=== PATIENT | male | born 1965 | race Caucasian/White ===

== ENCOUNTER → 2025-01-13 08:42 | Outpatient (CLI) | payer OTHER, SELFPAY ==
[2025-01-13 10:00] LABS: Add Manual Diff / Slide Review NO; Basophils Absolute Auto 100 /uL (0-100); Basophils Percent Auto 1.3 % (0-2); Eosinophils Absolute Auto 400 /uL (0-450); Eosinophils Percent Auto 3.8 % (2-4); Hematocrit 43.8 % (41-53); Hemoglobin 15.1 g/dL (13.5-17.5); Lymphocytes Absolute Auto 2800 /uL (1100-4500); Lymphocytes Percent Auto 28.8 % (25-40); Mean Corpuscular HGB Conc 34.3 % (30-36); Mean Corpuscular Hemoglobin 31.9 PG (26-34); Mean Corpuscular Volume 92.9 fL (80-100); Monocytes Absolute Auto 500 /uL (0-900); Monocytes Percent Auto 5.5 % (3-14); Neutrophils Absolute Auto 5900 /uL (1500-7000); Neutrophils Percent Auto 60.6 % (50-75); Platelet Count 323 X10^3/uL (150-400); Red Blood Cell Count 4.72 X10^6/uL (4.5-5.9); Red Cell Distribution Width 13.3 % (11.6-14.8); White Blood Cell Count 9.7 X10^3/uL (4.5-11.0)
[2025-01-13 10:23] LABS: Alanine Aminotransferase 35 IU/L (<50); Albumin 4.4 g/dL (3.5-5.0); Albumin Globulin Ratio 1.8 (1.0-2.8); Alkaline Phosphatase 70 U/L (38-126); Aspartate Aminotransferase 35 IU/L (17-59); BUN Creatinine Ratio 19.2 (6-22); Bilirubin Total 0.6 mg/dL (0.2-1.3); Blood Urea Nitrogen 20 mg/dL (9-20); Calcium 9.8 mg/dL (8.4-10.2); Carbon Dioxide 25 mmol/L (22-32); Chloride 104 mmol/L (98-107); Cholesterol 211 mg/dL (140-199); Estimated Glomerular Filt Rate > 60 mL/min (>60); Globulin 2.5 g/dL (1.7-4.1); Glucose 99 mg/dL (70-99); HDL Cholesterol 45 mg/dL (40-60); HEMOLYSIS < 15 (0-50); LDL Cholesterol Calculated 135 mg/dL (<100); Sodium 137 mmol/L (137-145); Total Protein 6.9 g/dL (6.3-8.2); Triglycerides 153 mg/dL (35-150)
== END ==
PROVIDERS: PCP Family Medicine; Referring Provider Family Medicine; Visit Provider Family Medicine
DX: R03.0 Elevated blood-pressure reading, without diagnosis of hypertension (principal); Z13.6 Encounter for screening for cardiovascular disorders
CPT/HCPCS: 36415; 80053; 80061; 85025

== ENCOUNTER 2025-03-18 11:21 | Day surgery (SDC) | payer OTHER, SELFPAY ==
--- NOTE | 2025-03-18 | PATH_ITS ---
[facility] Accession Number: [id number] No. of containers..02 Tissue . 01 Material submitted: . PART A: colon - COLON, DESCENDING POLYP #1 PART B: colon - COLON, SIGMOID POLYP AT 25 . 01 Diagnosis: A. DESCENDING COLON POLYP: Hyperplastic polyp. . B. 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 Mucin pools present at deep polypectomy stalk margin. Intact DNA mismatch repair proteins by immunoohistochemistry; please see below. . . B3. IMMUNOHISTOCHEMISTRY TESTING FOR MISMATCH REPAIR PROTEINS: . MLH1: Intact nuclear expression. MSH2: Intact nuclear expression. MSH6: Intact nuclear expression. PMS2: Intact nuclear expression. Background nonneoplastic tissue/internal control with intact nuclear expression. . INTERPRETATION: No loss of nuclear expression of MMR proteins: low probability of microsatellite instability-high (MSI-H)* . * There are exceptions to the above IHC interpretations. These results should not be considered in isolation, and clinical correlation with genetic counseling is recommended to assess the need for germline testing. . * This test was developed and the performance characteristics were validated by [employer]. It has not been cleared or approved by the U.S. Food and Drug Administration. MRV 03/29/2025 1448 Local . 01 Comment: As part of routine senior quality engineer, Dr. Huynh has reviewed this case and agrees with the diagnosis of invasive adenocarcinoma. The finding of invasive adenocarcinoma was report to Dr. Steward by Dr. Romero on 03/26/2025 at 11:35 a.m. . . 01 Electronically signed: . Zion Romero MD, PhD, Pathologist NPI- [id number] . 01 Gross description: . Part A: COLON, DESCENDING POLYP #1: Received in formalin is 1 fragment(s) of scott, soft tissue measuring 0.7 x 0.5 x 0.4 cm submitted entirely in 1 cassette(s) Part B: COLON, SIGMOID POLYP AT 25: Received in formalin are 2 fragments of scott soft tissue measuring 2.5 x 2.0 x 1.6 cm in aggregate. Specimen is sectioned and submitted in its entirety in 4 cassettes. /RAMILA 03/24/2025 0003 Local . 01 Pathologist provided ICD-10: C18.7 . 01 CPT . 849068, 733232, E26753, V26763 Specimen Comment: A courtesy copy of this report has been sent to [phone] Performed at: [address] [id number] MD Russell Huynh MD Phone: [phone]
--- NOTE | 2025-03-18 | DI.RAD.S_ITS ---
PROCEDURE: XR KUB INDICATIONS: rule out colon perforation following colonoscopy + polypecto TECHNIQUE: One view of the abdomen acquired. COMPARISON: None. FINDINGS: Stool gas pattern: Normal-no evidence of ileus or obstruction. No free intraperitoneal or extraperitoneal air. No gross evidence of ascites Soft tissues: No abnormal calcifications. No soft tissue masses. Organs: No gross evidence for organomegaly. IMPRESSION: Normal abdomen Dictated by: Chriss Drummond M.D. on 03/19/2025 at 9:42 Approved by: Chriss Drummond M.D. on 03/19/2025 at 9:42
[2025-03-18] MEDS: LACTATED RINGERS 1,000 ML 100 ML IV (11:37)
[2025-03-18 11:41] VITALS: BP 134/87; PULSE 87; RESP 16; TEMP 36.7; O2SAT 96
--- NOTE | 2025-03-18 12:41 | P.HP_ITS ---
History of Present Illness History of Present Illness Date Patient Seen: 03/18/25 Time Patient Seen: 12:42 Chief complaint: Screening Colonoscopy Narrative: Melvin is a 59-year-old man here for a screening colonoscopy. He has never had one before. No family history of colon cancer. [facility] Medical History (Updated 03/18/25 @ 12:42 by J Luis Steward MD) Wears glasses Migraines (~1999) Headache (~1999) Shoulder pain (~2021) Fractures (~2002) Foot pain (~2014) Mumps (~1971) Chicken pox (~1971) Family History (Updated 12/10/24 @ 19:39 by Lia Mosher) Father Cancer Mother Cancer Sister Cancer Social History Smoking Status: Never smoker alcohol intake: current Meds Home Medications and Allergies Home Medications ?Medication ?Instructions ?Recorded ?Confirmed ?Type clotrimazole 1 % topical cream 1 applic topical TID #3 0 grams 11/23/24 01/05/25 Rx triamcinolone acetonide 0.1 % 1 applic topical TID #30 grams 11/23/24 01/05/25 Rx topical cream Allergies Allergy/AdvReac Type Severity Reaction Status Date / Time No Known Drug Allergies Allergy Verified 03/18/25 11:50 Exam Vital Signs (past 8 hours): - 03/18/25 11:41 Temperature 98.1 F Pulse Rate 87 Respiratory Rate 16 Blood Pressure 134/87 Pulse Oximetry 96 Oxygen Delivery Method Room Air Oxygen Delivery Method Room Air Const General: healthy appearing Assessment & Plan Assessment and plan (1) Colon cancer screening: Status: Acute Plan Colonoscopy Time-Based Coding :: [TOTAL MINUTES] spent with patient and on the chart (including review of chart, obtaining history, exam, reviewing outside data, placing orders, documenting exam and treatment plan, and counseling patient) on [DATE]. PROFEE Civil Engineering Technician Document charge(s): No
[2025-03-18 13:55] VITALS: BP 130/70; PULSE 64; RESP 15; TEMP 36.2; O2SAT 98
--- NOTE | 2025-03-18 13:57 | PM.OP.COLON ---
Operative Date/Time/Diagnoses Date of procedure: 03/18/25 Time of procedure: 13:57 Pre-op diagnosis: Colon cancer screening Post-op diagnosis: same Procedure & Clinicians Study performed: Colonoscopy Same procedure(s) as scheduled: Yes Surgeon: J Luis Steward Anesthesia Type: MAC +/- Procedure Notes Procedure in detail: Surgeon: J Luis Steward MD Anesthesia: Gali Ugalde CRNA Procedure: The patient was brought to the endoscopy suite, placed in left lateral decubitus position. The patient was connected to monitoring devices. A time-out was performed. Sedation was administered. Once the patient was adequately sedated, a digital rectal exam was performed and was normal. The scope was then inserted and advanced to the cecum where the appendiceal orifice was identified and photographed. The scope was then slowly withdrawn over greater than 6 minutes. The mucosa was thoroughly inspected. There was 1 cm polyp in the descending colon removed with a hot snare. There was large polyp on a stalk in the proximal sigmoid colon at roughly 25 cm. The head of the this polyp was likely greater than 3 cm in diameter. This was removed with a hot snare and retrieved with the net. We reinspected the area to assure there was no evidence full-thickness colon injury and none was seen. The scope was retroflexed in the rectum. No other abnormalities were found. The scope was straightened and removed. The patient was awakened and brought to recovery. Scope withdrawal time: 43 minutes Sedation time: 48 minutes EBL: 5 mL Findings: 1 cm polyp in the descending colon and a large polyp versus mass on a stalk at 25 cm in the sigmoid colon Post-procedure Disposition: PACU
[2025-03-18 14:00] VITALS: BP 120/70; PULSE 68; RESP 16; O2SAT 98
[2025-03-18 14:10] VITALS: BP 110/60; BP 118/70; PULSE 68; PULSE 78; RESP 16; O2SAT 94; O2SAT 98
== END 2025-03-18 14:53 | disposition home or self-care (01) ==
PROVIDERS: PCP Family Medicine; Referring Provider Family Medicine; Visit Provider Surgery
PROC: 0DJD8ZZ Inspection of Lower Intestinal Tract, Via Natural or Artificial Opening Endoscopic (ICD-10-PCS; CPT 45378; principal; 2025-03-18 13:00)
DX: Z12.11 Encounter for screening for malignant neoplasm of colon (principal); K63.5 Polyp of colon; C18.7 Malignant neoplasm of sigmoid colon
CPT/HCPCS: 45385; 74018; J2704

== ENCOUNTER 2025-04-21 11:27 | Inpatient (IN) | payer OTHER, SELFPAY ==
[2025-04-14 11:48] VITALS: BMI 26.9
[2025-04-21] VITALS (19 sets, daily range): BP systolic 118–172; BP diastolic 67–99; PULSE 70–106; RESP 10–26; TEMP 36–37.1; O2SAT 93–98; BMI 26.9
--- NOTE | 2025-04-21 | PATH_ITS ---
[facility] Accession Number: [id number] No. of containers..01 Tissue . 01 Material submitted: . colon - COLON, SIGMOID . 01 Diagnosis: COLON, SIGMOID, SEGMENTAL RESECTION: Colonic mucosa with invasive adenocarcinoma, moderately differentiated, with the following features: . CASE SUMMARY Standard: AJCC 8 . SPECIMEN Procedure: Sigmoidectomy. . TUMOR Tumor site: Sigmoid colon. Histologic type: Adenocarcinoma. Histologic grade: G2, moderately differentiated. Tumor size: Greatest dimension in centimeters: 1.1 cm (largest dimension of neoplasm measured on glass slide). Tumor extent: Invades submucosa. Submucosal invasion: Present. Depth of submucosal invasion: Cannot be determined (due to disruption of the architecture in the setting of previous polypectomy, depth and extent of submucosal invasion cannot be definitively determined). Macroscopic tumor perforation: Not identified. Lymphatic and/or vascular invasion: Not identified. Perineural invasion: Not identified. Tumor budding score: Low (0-4). Type of polyp in which invasive carcinoma arose: Tubulovillous adenoma. Treatment effect: No known presurgical therapy. . MARGINS Margin status for invasive carcinoma: All margins negative for invasive carcinoma. Margin status for noninvasive tumor: All margins negative for high-grade dysplasia/intramucosal carcinoma and low-grade dysplasia. . REGIONAL LYMPH NODES Regional lymph node status: Regional lymph nodes present: All regional lymph nodes negative for tumor. Number of lymph nodes examined: 8. Tumor deposits: Not identified. . pTNM CLASSIFICATION (AJCC 8TH EDITION) pT1 pN0 . ADDITIONAL FINDINGS: None identified. . SPECIAL STUDIES: Refer to biopsy specimen [id number] (03/19/2025) for mismatch repair protein immunohistochemical evaluation. [facility] 04/28/2025 1723 Local . 01 Electronically signed: . Russell Huynh MD, Pathologist NPI- [id number] . 01 Gross description: . Received in formalin, labeled with two identifiers and sigmoid colon, is a segment of colon measuring 2.3 cm in length by 2.9 cm in average diameter. One end has a staple line that is inked black while the opposite end is patent and inked blue. The serosa is scott and smooth with a alexander-black isolated area of tattoo ink measuring 1.1 x 0.3 cm and is located 4.5 cm from the patent blue-inked margin. Additional areas of tattoo ink are identified within the fat at the blue-inked patent margin. Per the op note, tattoo ink was identified on the proximal sigmoid colon. Minimal fecal material is identified at the new lumen. An exophytic mass is identified measuring 1.9 x 1.2 x 1.2 cm is located 5.0 cm from the nearest blue-inked margin. Sectioning the mass reveals it to be confined to the mucosa and possible submucosa with no gross extension into the wall. The small serosal area of tattoo ink is adjacent to this mass. The areas of tattoo-inked adipose tissue correspond to two grossly distinct areas of slightly tattoo-inked bowel wall with no tattoo ink grossly identified in the mucosa as well as no remaining lesions in either of the two areas. No additional lesions are identified. The colón average 0.5 cm thick with no diverticula identified. 15 scott lymph node candidates are identified ranging from 0.3 cm to 1.1 cm in greatest dimension. A1: Dairy Feed Worker black margin en face. A2: Entire blue margin en face. A3-A5: Mass. A6: Tattoo-inked area nearest the mass. A7: First tattoo-inked area identified within the fat. A8-A9: Tattoo-inked area within the fat nearest the blue-inked margin. A10: Normal mucosa. A11: Single bisected lymph node candidate. A12: Single intact lymph node candidate. A13: Four intact lymph node candidates. A14: Five intact lymph node candidates. A15: Four intact lymph node candidates. ([id number]) /DEQUAN 04/24/2025 1307 Local . 01 Pathologist provided ICD-10: C18.7 . 01 CPT . 556423 Specimen Comment: A courtesy copy of this report has been sent to [phone] Performed at: [address] [address], [place], [place] [id number] MD Russell Huynh MD Phone: [phone]
[2025-04-21] MEDS: LACTATED RINGERS 1,000 ML 42 ML IV ×4 (12:16→18:41)
[2025-04-21] MEDS: ACETAMINOPHEN 325 MG TABLET 975 MG PO (12:19)
[2025-04-21] MEDS: AMPICILLIN/SULBACTAM 3 GM 3 GM in SODIUM CHLORIDE 0.9% 100 ML IV ×3 (13:49→23:20)
--- NOTE | 2025-04-21 14:12 | SUR.OPER ---
Lithotomy on padded OR bed. [place] Pad Positioner under torso. Head on pillow, prone pillow over face, arms padded and tucked at sides. Legs secured in padded yellow fins stirrups.
--- NOTE | 2025-04-21 18:44 | PM.OP.1 ---
Operative Date/Time/Diagnoses Date of procedure: 04/21/25 Time of procedure: 18:44 Pre-op diagnosis: Sigmoid colon cancer Post-op diagnosis: same Procedure & Clinicians Procedure: Robotic sigmoid colon resection Same procedure(s) as scheduled: Yes Surgeon: J Luis Steward Technical Applications Specialist: Trey Shah Anesthesia Type: General Operative Notes Findings: Horseshoe kidney Applied: none Estimated Blood Loss (mL): 40 Procedure in detail: The patient was given Unasyn. The patient was brought to the operating room, placed on the table in the supine position and general endotracheal anesthesia was induced. A Heath catheter was inserted and the legs were placed in stirrups. The abdomen was prepped and draped in the usual fashion and a time-out was performed. We made a 1 cm supraumbilical incision and an 8 mm robotic port was placed. The abdomen was insufflated in the usual manner. The camera was inserted no evidence of an injury was seen. Next we placed 8 mm ports in the left upper quadrant and right midabdomen under direct vision. We then placed a 12 mm port in the right lower quadrant under direct vision. We placed a 5 mm laparoscopic port in the right upper quadrant under direct vision. Finally we created a 5 mm transverse Pfannenstiel incision through the skin and dissected down to the anterior sheath which was divided in the midline. We placed a small Juan wound retractor into the wound and tied it off around an 8 mm robotic trocar to a create seal. We inspected the abdomen and found tattoo ink in the proximal sigmoid colon. We positioned with the patient in steep Trendelenburg and air planed the table so that the left side was up. We started with a medial to lateral approach by dissecting the mesentery off the retroperitoneum inferior to the JUAN. The ureter was visualized and protected. We then started to take down the lateral attachments of the sigmoid colon and continued the dissection to the splenic flexure. We continued the dissection down into the pelvis and created a window posterior to the upper rectum. We divided the upper rectum with one firing with a blue load stapler and finished it off with a white load. It became obvious that his low lying horseshoe kidney was causing his vasculature to be in abnormal locations. We are able to isolate the inferior mesenteric artery and it was divided with a single firing of the stapler with a white load. We then dissected the mesentery up to the distal descending colon with the vessel sealer. We divided the distal descending colon from the proximal sigmoid colon with the cautery and brought in an anvil for a 29 mm EEA stapler. The anvil was sewn in with a 3-0 V lock and further secured with an 0 PDS endoloop. Some fat was trimmed away overlying the anvil to create a clean anastomosis. We then created a colorectal anastomosis using the 29 mm EEA stapler. The donuts were intact and the leak test was negative for leak. We then undocked the robot and extracted the specimen through the low Pfannenstiel incision. Finally, Exparel was injected into the pre and post fascial planes. The fascia of the low midline incision was then closed using a running 0 PDS suture. The 12 mm port site in the right lower quadrant was closed with a single 0 Vicryl stitch. The supraumbilical fascia was closed with 2 interrupted 0 Vicryl sutures. The skin was closed with 4-0 Monocryl and Steri-Strips. The patient was awakened and brought to recovery room. Dr. Shah provided assistance with exposure and creation of the anastomosis. EBL: 40 mL Specimen: Sigmoid colon Complications: none Post-operative Condition: stable Disposition: PACU
[2025-04-21] MEDS: INDOCYANINE GREEN 25 MG VIAL IV (18:52)
[2025-04-21] MEDS: hydrOXYzine 50 MG/ML INJ IM (19:25)
[2025-04-22 04:00] VITALS: BP 138/87; PULSE 74; RESP 12; TEMP 36.2; O2SAT 95
[2025-04-22] MEDS: AMPICILLIN/SULBACTAM 3 GM 3 GM in SODIUM CHLORIDE 0.9% 100 ML IV ×3 (04:04→16:07)
[2025-04-22 07:06] LABS: Add Manual Diff / Slide Review NO; Hematocrit 38.7 % (41-53); Hemoglobin 13.0 g/dL (13.5-17.5); Lymphocytes Absolute Auto 1200 /uL (1100-4500); Mean Corpuscular HGB Conc 33.7 % (30-36); Mean Corpuscular Hemoglobin 31.4 PG (26-34); Mean Corpuscular Volume 93.0 fL (80-100); Platelet Count 244 X10^3/uL (150-400)
[2025-04-22 07:24] LABS: Blood Urea Nitrogen 12 mg/dL (9-20); Calcium 8.3 mg/dL (8.4-10.2); Carbon Dioxide 22 mmol/L (22-32); Chloride 107 mmol/L (98-107); Estimated Glomerular Filt Rate > 60 mL/min (>60); Glucose 120 mg/dL (70-99); HEMOLYSIS 16 (0-50); Potassium 4.2 mmol/L (3.4-5.1); Sodium 137 mmol/L (137-145)
[2025-04-22] MEDS: ENOXAPARIN 40 MG/0.4 ML SYRINGE SUBCUT (08:10)
[2025-04-22 09:22] VITALS: BP 127/71; PULSE 77; RESP 14; TEMP 36.5; O2SAT 97
--- NOTE | 2025-04-22 12:21 | PM.PN.IH.1 ---
Subjective Subjective Date Patient Seen: 04/22/25 Time Patient Seen: 12:22 Interval history: Complaining of some lower incisional pain Hoping to eat soon Exam Vital Signs (past 8 hours): - 04/22/25 09:22 Temperature 97.7 F Pulse Rate 77 Respiratory Rate 14 Blood Pressure 127/71 Pulse Oximetry 97 Oxygen Flow Rate 0 Oxygen Delivery Method Room Air Oxygen Flow Rate 0 Narrative Exam Narrative: Abdomen is soft, some incisional tenderness Objective Labs 04/22/25 06:57 04/22/25 06:57 Labs: Laboratory Results - last 24 hr 04/22/25 06:57 WBC 10.9 RBC 4.16 L Hgb 13.0 L Hct 38.7 L MCV 93.0 MCH 31.4 MCHC 33.7 RDW 13.4 Plt Count 244 Neut % (Auto) 78.8 H Lymph % (Auto) 11.4 L [place] % (Auto) 9.2 Eos % (Auto) 0.0 L Baso % (Auto) 0.6 Neut # (Auto) 8600 H Lymph # (Auto) 1200 [place] # (Auto) 1000 H Eos # (Auto) 0 Baso # (Auto) 100 Sodium 137 Potassium 4.2 Chloride 107 Carbon Dioxide 22 BUN 12 Creatinine 0.91 Estimated GFR > 60 BUN/Creatinine Ratio 13.2 Glucose 120 H Calcium 8.3 L PFSH Medical History (Updated 04/02/25 @ 12:22 by J Luis Steward MD) Wears glasses Migraines (~1999) Headache (~1999) Shoulder pain (~2021) Fractures (~2002) Foot pain (~2014) Mumps (~1971) Chicken pox (~1971) Family History (Updated 12/10/24 @ 19:39 by Lia Mosher) Father Cancer Mother Cancer Sister Cancer Social History Smoking Status: Former smoker alcohol intake: current Assessment & Plan Assessment and plan (1) Colon cancer: Qualifiers: Colon location: sigmoid Qualified Code(s): C18.7 - Malignant neoplasm of sigmoid colon Status: Acute Plan Await bowel function Discontinue Heath catheter Okay to advance to regular diet this evening he desires Time-Based Coding :: [TOTAL MINUTES] spent with patient and on the chart (including review of chart, obtaining history, exam, reviewing outside data, placing orders, documenting exam and treatment plan, and counseling patient) on [DATE]. PROFEE Bench Loom Weaver Document charge(s): No
[2025-04-22 19:55] VITALS: BP 126/87; PULSE 79; RESP 18; TEMP 36.2; O2SAT 93
[2025-04-23 08:00] VITALS: BP 156/90; PULSE 78; RESP 15; TEMP 36.2; O2SAT 98
[2025-04-23] MEDS: IBUPROFEN 600 MG TABLET PO (09:18)
--- NOTE | 2025-04-23 12:32 | PM.DS.IH.1 ---
History of Present Illness History of Present Illness Chief complaint: Robotic sigmoid colon resection Discharge Providers Provider Date of admission: 04/21/25 11:27 Discharge Date: 04/23/25 Primary care physician: Kaelyn Horn MD Discharge provider: J Luis Steward MD Summary Hospital Course Discharge Diagnosis: Colon cancer Hospital Course: The patient is a 59-year-old man who had a colon cancer discovered on a colonoscopy. He had a robotic assisted sigmoid colon resection on April 21, 2025. See the operative note for details. By postoperative day 2 he was tolerating a regular diet and having bowel function. His pain was controlled with the oral pain medications. He was discharged home on postoperative day 2. Exam Vital Signs (past 8 hours): - 04/23/25 08:00 Temperature 97.1 F L Pulse Rate 78 Respiratory Rate 15 Blood Pressure 156/90 H Pulse Oximetry 98 Oxygen Flow Rate 0 Oxygen Delivery Method Room Air Oxygen Flow Rate 0 Objective Labs 04/22/25 06:57 04/22/25 06:57 [facility] Medical History (Updated 04/02/25 @ 12:22 by J Luis Steward MD) Wears glasses Migraines (~1999) Headache (~1999) Shoulder pain (~2021) Fractures (~2002) Foot pain (~2014) Mumps (~1971) Chicken pox (~1971) Family History (Updated 12/10/24 @ 19:39 by Lia Vidhi) Father Cancer Mother Cancer Sister Cancer Social History Smoking Status: Former smoker alcohol intake: current Discharge Plan Discharge Plan Patient Disposition: Home Provider Discharge Comment: No lifting greater than 40 lb for 2 weeks. Okay to remove the outer dressing and shower tonight. Steri-Strips can get wet in the shower. Remove the Steri-Strips after 5-7 days. Discharge orders & Medications Prescriptions: New hydrocodone-acetaminophen 5-325 mg tablet 1 tab PO Q8H PRN (Reason: pain) Qty: 14 0RF Continued clotrimazole 1 % cream 1 applic topical TID Qty: 30 2RF Rx Instructions: use for groin triamcinolone acetonide 0.1 % cream 1 applic topical TID Qty: 30 2RF Discontinued neomycin 500 mg tablet 1 g PO TID Qty: 3 0RF Rx Instructions: administer at 1 PM, 2 PM, and 10 PM the day prior to surgery; Take as directed by provider. Handout given to patient Follow up/Referrals: Kaelyn Horn MD [Primary Care Provider, [facility]] Visit Report/Discharge Packet Stand Alone Forms: Patient Portal/API, Stroke Signs & Symptoms Discharge Data Primary Care Provider: Kaelyn oHrn PROFEE Charge Codes Discharge inpatient/observation: [id number]
--- NOTE | 2025-04-23 14:07 | PC.NURSE ---
Discharge: pt agreeable to discharge home. IV discontinued, belongings gathered. Discharge instructions provided on stroke s/s, follow up, incision management, and pain medications. Pt wheeled via w/c to private vehicle at approximately 1350.
== END 2025-04-23 13:58 | disposition home or self-care (01) | DRG 331 ==
PROVIDERS: Admitting Provider Surgery; PCP Family Medicine; Referring Provider Surgery; Visit Provider Surgery
PROC: 0DTN4ZZ Resection of Sigmoid Colon, Percutaneous Endoscopic Approach (ICD-10-PCS; CPT 44204; principal; 2025-04-21 13:15)
DX: C18.7 Malignant neoplasm of sigmoid colon (principal); Q63.1 Lobulated, fused and horseshoe kidney; Z87.891 Personal history of nicotine dependence
CPT/HCPCS: 36415; 44204; 80048; 85025; J0295; J1100; J1171; J1650; J1885; J2405; J2704; J3010; J3410; J3490